=== PATIENT | female | born 1990 | race Caucasian/White ===

== ENCOUNTER 2022-09-23 18:09 | Emergency (ER) | payer OTHER ==
[~2022-09-23] VITALS: Ht 165.1 cm; Wt 70.7 kg
[2022-09-23] MEDS ORDERED: BACL10TA2 PO (18:23)
[2022-09-23] MEDS ORDERED: MELO15TA28 PO (20:43)
[2022-09-23] MEDS ORDERED: KETOROLAC 30 MG/ML 1ML VIAL IM ONE (20:45)
[2022-09-23] MEDS ORDERED: MEDR4PAK PO (20:48)
[2022-09-23 21:05] VITALS: BP 120/63
== END 2022-09-23 21:09 | disposition home or self-care (01) ==
LOC: M ED 18:09
DX: M77.11 Lateral epicondylitis, right elbow (principal); S63.501A Unspecified sprain of right wrist, initial encounter; G62.9 Polyneuropathy, unspecified
CPT/HCPCS: 73110; 96372; 99283; J1885

== ENCOUNTER → 2022-12-05 | Outpatient (REF) ==
[~2022-12-05] MED LIST: BACL10TA2 PO; MEDR4PAK PO; MELO15TA28 PO
== END ==
LOC: M LABSMTC 10:20
PROVIDERS: ATTEND Family Medicine
DX: Z00.00 Encounter for general adult medical examination without abnormal findings (principal)

== ENCOUNTER → 2022-12-06 | Outpatient (REF) | LOC: M EMP 08:56 | PROVIDERS: ATTEND Family Medicine | DX: Z11.52 Encounter for screening for COVID-19 (principal) ==

== ENCOUNTER 2023-03-18 16:50 | Emergency (ER) | payer OTHER, BC ==
[~2023-03-18] VITALS: Ht 165.1 cm; Wt 70.5 kg
[2023-03-18] MEDS ORDERED: ADDE15CA3 PO (17:01)
[2023-03-18] MEDS ORDERED: CYMB60CA4 PO (17:01)
[2023-03-18 20:16] VITALS: BP 119/69
== END 2023-03-18 20:19 | disposition home or self-care (01) ==
LOC: M ED 16:50
DX: S83.203A Other tear of unspecified meniscus, current injury, right knee, initial encounter (principal); X50.0XXA Overexertion from strenuous movement or load, initial encounter; Y92.89 Other specified places as the place of occurrence of the external cause; Y93.01 Activity, walking, marching and hiking; Y99.0 Civilian activity done for income or pay; F90.9 Attention-deficit hyperactivity disorder, unspecified type; Z88.8 Allergy status to other drugs, medicaments and biological substances; Z79.899 Other long term (current) drug therapy

== ENCOUNTER → 2023-03-25 | Outpatient (REF) ==
[~2023-03-25] MED LIST changes: +ADDE15CA3 PO; +CYMB60CA4 PO
== END ==
LOC: M EMP 11:34
PROVIDERS: ATTEND Family Medicine
DX: Z11.52 Encounter for screening for COVID-19 (principal)

== ENCOUNTER 2023-05-28 20:35 | Emergency (ER) | payer BC, OTHER ==
[~2023-05-28] VITALS: Ht 165.1 cm; Wt 74.0 kg
[2023-05-28] MEDS ORDERED: DIPH50CA PO (20:39)
[2023-05-29] MEDS ORDERED: FAMOTIDINE 20 MG TAB PO ONE (00:40)
[2023-05-29] MEDS ORDERED: predniSONE 20 MG TAB PO ONE (00:40)
[2023-05-29] MEDS ORDERED: CETIRIZINE (ZyrTEC) 10 MG TAB PO ONE (00:40)
[2023-05-29] MEDS ORDERED: PRED20TA PO (00:41)
[2023-05-29] MEDS ORDERED: CETI10CH PO (00:41)
[2023-05-29] MEDS ORDERED: PEPC1TAB5 PO (00:41)
[2023-05-29 00:58] VITALS: BP 120/64; TEMP 98.5; O2SAT 98
== END 2023-05-29 01:00 | disposition home or self-care (01) ==
LOC: M ED 20:35
DX: R22.32 Localized swelling, mass and lump, left upper limb (principal); S60.562A Insect bite (nonvenomous) of left hand, initial encounter; W57.XXXA Bitten or stung by nonvenomous insect and other nonvenomous arthropods, initial encounter; Y92.89 Other specified places as the place of occurrence of the external cause; Y93.89 Activity, other specified; Y99.8 Other external cause status; Z79.899 Other long term (current) drug therapy; Z88.8 Allergy status to other drugs, medicaments and biological substances; Z91.040 Latex allergy status; F32.A Depression, unspecified
CPT/HCPCS: 99283; J7512

== ENCOUNTER → 2023-06-29 | Outpatient (CLI) | payer BC ==
[~2023-06-29] MED LIST changes: +CETI10CH PO; +DIPH50CA PO; +PEPC1TAB5 PO; +PRED20TA PO
== END ==
LOC: M WHC 09:31
PROVIDERS: ATTEND Registered Nurse
DX: N64.4 Mastodynia (principal)

== ENCOUNTER → 2023-07-15 | Outpatient (CLI) | payer BC ==
[2023-07-15 13:38] LABS: BASO # 0.1 10^3/uL (0.0-0.2); EOS # 0.1 10^3/uL (0.0-0.5); EOS % 1.6 % (0.0-3.0); HEMOGLOBIN 12.8 g/dl (12.0-15.5); LYMPH # 2.5 10^3/uL (1.5-5.0); LYMPH % 30.8 % (24.0-44.0); MEAN CORPUSCULAR HEMOGLOBIN 27.1 pg (27.0-33.0); MEAN CORPUSCULAR VOLUME 84.6 fl (80.0-96.0); MONO # 0.6 10^3/uL (0.0-0.8); MONO % 7.2 % (2.0-8.0); NEUTROPHILS # 4.8 10^3/uL (1.5-8.5); NEUTROPHILS % 59.2 % (36.0-66.0); PLATELET COUNT, AUTOMATED 264 10^3/uL (150-450); RED BLOOD COUNT 4.73 10^6/uL (4.00-5.40)
[2023-07-15 14:05] LABS: ALBUMIN 3.7 G/DL (3.2-5.2); ALKALINE PHOSPHATASE 65 U/L (46-116); ALT/SGPT 29 U/L (7.0-40); AST/SGOT 23 U/L (<34); BILIRUBIN,TOTAL 0.8 MG/DL (0.3-1.2); BLOOD UREA NITROGEN 13 MG/DL (9-23); CALCIUM LEVEL 8.5 MG/DL (8.5-10.1); CARBON DIOXIDE LEVEL 29 MMOL/L (20-31); CHLORIDE LEVEL 106 MMOL/L (98-107); CHOLESTEROL LEVEL 105 MG/DL (<200); CREATININE FOR GFR 0.67 MG/DL (0.55-1.30); FREE T4 0.78 NG/DL (0.89-1.76); GLOMERULAR FILTRATION RATE > 60.0 (>60); GLUCOSE, FASTING 86 MG/DL (60-100); HDL CHOLESTEROL 43.7 MG/DL (>40); LDL CHOLESTEROL 52.1 MG/DL (<100); NON-HDL-C 61.3 MG/DL; POTASSIUM SERUM 3.9 MMOL/L (3.5-5.1); SODIUM LEVEL 139 MMOL/L (136-145); THYROID STIMULATING HORMONE 2.041 uIU/ML (0.55-4.78); TOTAL PROTEIN 6.8 G/DL (5.7-8.2); TRIGLYCERIDES LEVEL 46 MG/DL (<150)
== END ==
LOC: M LAB 13:05
PROVIDERS: ATTEND Registered Nurse
DX: Z00.00 Encounter for general adult medical examination without abnormal findings (principal); G90.A Postural orthostatic tachycardia syndrome [POTS]; R94.6 Abnormal results of thyroid function studies

== ENCOUNTER → 2023-09-14 | Outpatient (REF) ==
[2023-09-14 13:38] LABS: RSV AMPLIFICATION NEGATIVE (NEGATIVE)
== END ==
LOC: M EMP 08:17
PROVIDERS: ATTEND Family Medicine
DX: Z11.52 Encounter for screening for COVID-19 (principal)

== ENCOUNTER 2023-11-12 10:42 | Emergency (ER) | payer BC ==
[~2023-11-12] VITALS: Ht 165.1 cm; Wt 75.1 kg
[2023-11-12] MEDS ORDERED: MELO7.5T35 (10:59)
[2023-11-12] MEDS ORDERED: RIME75TA (10:59)
[2023-11-12] MEDS ORDERED: LEXA1TAB (11:00)
[2023-11-12] MEDS ORDERED: BUPR-71 (11:00)
[2023-11-12 11:57] LABS: RSV AMPLIFICATION NEGATIVE (NEGATIVE)
[2023-11-12 12:27] LABS: BASO # 0.1 10^3/uL (0.0-0.2); BASO % 0.5 % (0.0-1.0); EOS % 0.2 % (0.0-3.0); HEMATOCRIT 41.7 % (36.0-47.0); HEMOGLOBIN 13.7 g/dl (12.0-15.5); LYMPH # 1.4 10^3/uL (1.5-5.0); LYMPH % 8.8 % (24.0-44.0); MEAN CORPUSCULAR HEMOGLOBIN 27.7 pg (27.0-33.0); MEAN CORPUSCULAR HGB CONC 32.9 g/dl (32.0-36.5); MEAN CORPUSCULAR VOLUME 84.2 fl (80.0-96.0); MONO # 0.9 10^3/uL (0.0-0.8); NEUTROPHILS # 13.2 10^3/uL (1.5-8.5); NEUTROPHILS % 84.2 % (36.0-66.0); PLATELET COUNT, AUTOMATED 287 10^3/uL (150-450); RED BLOOD COUNT 4.95 10^6/uL (4.00-5.40); WHITE BLOOD COUNT 15.6 10^3/uL (4.0-10.0)
[2023-11-12 12:57] LABS: LIPASE 30 U/L (12-53)
[2023-11-12 12:59] LABS: ALKALINE PHOSPHATASE 84 U/L (46-116); ALT/SGPT 17 U/L (7.0-40); AST/SGOT 12 U/L (<34); BILIRUBIN,DIRECT 0.4 MG/DL (<0.4); BILIRUBIN,TOTAL 1.1 MG/DL (0.3-1.2); TOTAL PROTEIN 7.5 G/DL (5.7-8.2)
[2023-11-12 13:03] LABS: HCG, SERUM QUALITATIVE NEGATIVE (NEGATIVE)
[2023-11-12] MEDS ORDERED: KETOROLAC 30 MG/ML 1ML VIAL IV ONE (13:20)
[2023-11-12] MEDS ORDERED: ISOVUE-370 76% 100ML VIAL As Ordered ONE (13:57)
[2023-11-12] MEDS ORDERED: AMOX875T2 PO (16:53)
[2023-11-12 17:20] VITALS: BP 114/61; TEMP 98.9; O2SAT 98
== END 2023-11-12 17:23 | disposition home or self-care (01) ==
LOC: M ED 10:42
DX: R10.9 Unspecified abdominal pain (principal); Z87.891 Personal history of nicotine dependence; Z91.040 Latex allergy status; Z88.8 Allergy status to other drugs, medicaments and biological substances; Z79.899 Other long term (current) drug therapy
CPT/HCPCS: 71046; 74177; 76830; 76856; 80047; 80076; 81001; 83690; 84703; 85025; 87631; 93976; 96374; 99284; J1885; Q9967

== ENCOUNTER → 2023-12-05 | Outpatient (CLI) | payer BC ==
[~2023-12-05] MED LIST changes: +AMOX875T2 PO; +BUPR-71; +GASTROGRAFIN SOLUTION 30ML ONE; +ISOVUE-370 76% 100ML VIAL ONE; +LEXA1TAB; +MELO7.5T35; +RIME75TA
== END ==
LOC: M PLAIMG 08:53
PROVIDERS: ATTEND Surgery
DX: R10.31 Right lower quadrant pain (principal)
CPT/HCPCS: 74177; Q9963; Q9967

== ENCOUNTER 2024-01-18 10:08 | Day surgery (SDC) | payer BC ==
[~2024-01-18] VITALS: Ht 165.1 cm; Wt 70.9 kg
[~2024-01-18 10:08] MED LIST changes: +CVSTAB PO; -GASTROGRAFIN SOLUTION 30ML ONE; -ISOVUE-370 76% 100ML VIAL ONE; +VENTAER INH
[2024-01-18] MEDS: NS 1,000 ML IV ONE (10:52)
[2024-01-18] MEDS ORDERED: propofoL 200 MG/20 ML VIAL As Ordered ONE (11:00)
[2024-01-18] MEDS ORDERED: LIDOCAINE 2% 100MG/5ML SDV (FOR ANES.) As Ordered ONE (11:00)
[2024-01-18 11:43] VITALS: TEMP 97.8
[2024-01-18 12:03] VITALS: BP 98/53; O2SAT 99
== END 2024-01-18 12:10 | disposition home or self-care (01) ==
LOC: M OPP 10:08
PROVIDERS: ATTEND Surgery
DX: R10.31 Right lower quadrant pain (principal); K64.0 First degree hemorrhoids; K63.89 Other specified diseases of intestine; Z87.891 Personal history of nicotine dependence; Z79.51 Long term (current) use of inhaled steroids; Z79.899 Other long term (current) drug therapy; Z88.8 Allergy status to other drugs, medicaments and biological substances; Z91.040 Latex allergy status

== ENCOUNTER → 2024-02-01 | Outpatient (REF) | LOC: M EMP 13:46 | PROVIDERS: ATTEND Family Medicine | DX: Z11.52 Encounter for screening for COVID-19 (principal) ==

== ENCOUNTER → 2024-02-21 | Outpatient (REF) | LOC: M EMP 10:04 | PROVIDERS: ATTEND Family Medicine | DX: Z11.52 Encounter for screening for COVID-19 (principal) ==

== ENCOUNTER → 2024-02-21 | Outpatient (REF) | LOC: M EMP 10:30 | PROVIDERS: ATTEND Family Medicine | DX: Z11.52 Encounter for screening for COVID-19 (principal) ==

== ENCOUNTER 2024-03-08 05:57 | Day surgery (SDC) | payer BC ==
[~2024-03-08] VITALS: Ht 165.1 cm; Wt 70.3 kg
[2024-03-08] MEDS: LR 1,000 ML IV SCH (06:49)
[2024-03-08] MEDS ORDERED: ROCURONIUM BROMIDE 50MG/5ML VIAL As Ordered ONE (07:13)
[2024-03-08] MEDS ORDERED: ONDANSETRON 4MG 2ML VIAL As Ordered ONE (07:13)
[2024-03-08] MEDS ORDERED: LIDOCAINE 2% 100MG/5ML SDV (FOR ANES.) As Ordered ONE (07:13)
[2024-03-08] MEDS ORDERED: propofoL 200 MG/20 ML VIAL As Ordered ONE (07:13)
[2024-03-08] MEDS ORDERED: fentaNYL 100 MCG/2 ML INJECTION As Ordered ONE (07:14)
[2024-03-08] MEDS ORDERED: MIDAZOLAM INJ 2MG/2ML VIAL As Ordered ONE (07:14)
[2024-03-08] MEDS: ceFAZolin SOD 2 GM in IV 1 EA IV ONE (07:33)
[2024-03-08] MEDS: metroNIDAZOLE 500 MG in IV 1 EA IV ONE (07:41)
[2024-03-08] MEDS ORDERED: dexmedeTOMIDine (4MCG/ML)200MCG/50ML BTL (PRECEDEX) As Ordered ONE (07:50)
[2024-03-08] MEDS ORDERED: ACETAMINOPHEN 1000MG 100ML IV BAG As Ordered ONE (08:06)
[2024-03-08] MEDS ORDERED: HYDROMORPHONE HCL 0.5 MG/ 0.5 ML SYRINGE IV PRN (08:55)
[2024-03-08] MEDS ORDERED: LR 1,000 ML IV SCH (08:55)
[2024-03-08] MEDS: ONDANSETRON 4MG 2ML VIAL IV PRN (09:11)
[2024-03-08] MEDS: fentaNYL 100 MCG/2 ML INJECTION IV PRN (09:27)
[2024-03-08] MEDS: oxyCODONE 5MG TAB PO PRN (09:34)
[2024-03-08] MEDS: PROMETHAZINE 25MG/ML 1ML VIAL IV PRN (10:04)
[2024-03-08] MEDS ORDERED: NORCO, ANEXSIA 5/325MG TABLET (HYDROcodone/ACETAMINOPHEN) PO PRN (10:30)
[2024-03-08 10:54] VITALS: BP 99/54; TEMP 97.7; O2SAT 100
[2024-03-08] MEDS: SCOPOLAMINE 1MG TRANSDERMAL PATCH TOP ONE (11:15)
== END 2024-03-08 11:42 | disposition home or self-care (01) ==
LOC: M SDC 05:57
PROVIDERS: ATTEND Surgery
DX: K37 Unspecified appendicitis (principal); Z91.040 Latex allergy status; Z88.8 Allergy status to other drugs, medicaments and biological substances; Z87.891 Personal history of nicotine dependence; Z79.899 Other long term (current) drug therapy
CPT/HCPCS: 44970; 81025; 88304; J0131; J0665; J0690; J1100; J1836; J2250; J2405; J2550; J3010; S2900

== ENCOUNTER → 2024-04-04 | Outpatient (CLI) | payer BC ==
[2024-04-04 17:12] LABS: BASO # 0.1 10^3/uL (0.0-0.2); BASO % 1.4 % (0.0-1.0); EOS # 0.1 10^3/uL (0.0-0.5); EOS % 1.1 % (0.0-3.0); HEMATOCRIT 38.7 % (36.0-47.0); HEMOGLOBIN 12.6 g/dl (12.0-15.5); LYMPH # 2.4 10^3/uL (1.5-5.0); LYMPH % 35.9 % (24.0-44.0); MEAN CORPUSCULAR HEMOGLOBIN 27.3 pg (27.0-33.0); MEAN CORPUSCULAR HGB CONC 32.6 g/dl (32.0-36.5); MEAN CORPUSCULAR VOLUME 83.8 fl (80.0-96.0); MONO # 0.6 10^3/uL (0.0-0.8); MONO % 8.8 % (2.0-8.0); NEUTROPHILS # 3.5 10^3/uL (1.5-8.5); NEUTROPHILS % 52.6 % (36.0-66.0); PLATELET COUNT, AUTOMATED 325 10^3/uL (150-450); RED BLOOD COUNT 4.62 10^6/uL (4.00-5.40); WHITE BLOOD COUNT 6.6 10^3/uL (4.0-10.0)
[2024-04-04 17:24] LABS: HEMOGLOBIN A1c 5.1 % (4.0-6.0)
[2024-04-04 17:43] LABS: THYROID STIMULATING HORMONE 1.139 uIU/ML (0.55-4.78)
[2024-04-04 17:44] LABS: ALKALINE PHOSPHATASE 85 U/L (46-116); ALT/SGPT 88 U/L (7.0-40); AST/SGOT 52 U/L (<34); BILIRUBIN,TOTAL 0.5 MG/DL (0.3-1.2); BLOOD UREA NITROGEN 9 MG/DL (9-23); CALCIUM LEVEL 9.1 MG/DL (8.5-10.1); CARBON DIOXIDE LEVEL 29 MMOL/L (20-31); CHLORIDE LEVEL 104 MMOL/L (98-107); CREATININE FOR GFR 0.75 MG/DL (0.55-1.30); FREE T4 1.33 NG/DL (0.89-1.76); GLOMERULAR FILTRATION RATE > 60.0 (>60); GLUCOSE, FASTING 93 MG/DL (60-100); POTASSIUM SERUM 4.4 MMOL/L (3.5-5.1); SODIUM LEVEL 139 MMOL/L (136-145); TOTAL PROTEIN 7.4 G/DL (5.7-8.2)
== END ==
LOC: M LAB 16:46
PROVIDERS: ATTEND Nurse Practitioner Psychiatric/Mental Health
DX: Z79.899 Other long term (current) drug therapy (principal)

== ENCOUNTER → 2024-05-18 | Outpatient (REF) | LOC: M EMP 13:01 | PROVIDERS: ATTEND Family Medicine | DX: Z11.52 Encounter for screening for COVID-19 (principal) ==

== ENCOUNTER → 2024-10-30 | Outpatient (REF) | LOC: M EMP 09:07 | PROVIDERS: ATTEND Family Medicine | DX: Z11.52 Encounter for screening for COVID-19 (principal) ==

== ENCOUNTER → 2024-11-20 | Outpatient (REF) | payer BC | LOC: M LAB REF 15:59 | PROVIDERS: ATTEND Physician Assistant | DX: B34.9 Viral infection, unspecified (principal) ==

== ENCOUNTER → 2025-01-04 | Outpatient (CLI) | payer BC ==
[2025-01-04 08:38] LABS: BASO # 0.1 10^3/uL (0.0-0.2); EOS # 0.3 10^3/uL (0.0-0.5); EOS % 4.9 % (0.0-3.0); HEMATOCRIT 40.1 % (36.0-47.0); HEMOGLOBIN 12.7 g/dl (12.0-15.5); LYMPH # 1.2 10^3/uL (1.5-5.0); LYMPH % 18.6 % (24.0-44.0); MEAN CORPUSCULAR HEMOGLOBIN 26.6 pg (27.0-33.0); MEAN CORPUSCULAR HGB CONC 31.7 g/dl (32.0-36.5); MEAN CORPUSCULAR VOLUME 84.1 fl (80.0-96.0); MONO # 0.4 10^3/uL (0.0-0.8); MONO % 6.9 % (2.0-8.0); NEUTROPHILS # 4.3 10^3/uL (1.5-8.5); NEUTROPHILS % 67.3 % (36.0-66.0); PLATELET COUNT, AUTOMATED 328 10^3/uL (150-450); RED BLOOD COUNT 4.77 10^6/uL (4.00-5.40); WHITE BLOOD COUNT 6.4 10^3/uL (4.0-10.0)
[2025-01-04 09:11] LABS: IRON (FE) 66 UG/DL (50-170)
[2025-01-04 09:12] LABS: ALKALINE PHOSPHATASE 73 U/L (35-104); ALT/SGPT 27 U/L (7.0-40); AST/SGOT 18 U/L (<34); BILIRUBIN,TOTAL 0.6 MG/DL (0.3-1.2); BLOOD UREA NITROGEN 16 MG/DL (9-23); CALCIUM LEVEL 9.1 MG/DL (8.5-10.1); CARBON DIOXIDE LEVEL 29 MMOL/L (20-31); CHLORIDE LEVEL 105 MMOL/L (98-107); CHOLESTEROL LEVEL 109 MG/DL (<200); CHOLESTEROL RISK RATIO 2.57 (<5); FERRITIN 28.3 NG/ML (7.3-270.7); FOLATE 9.5 NG/ML (>5.4); FREE T4 1.18 NG/DL (0.89-1.76); GLOMERULAR FILTRATION RATE > 60.0 (>60); GLUCOSE, FASTING 90 MG/DL (60-100); HDL CHOLESTEROL 42.3 MG/DL (>40); LDL CHOLESTEROL 60.1 MG/DL (<100); NON-HDL-C 66.7 MG/DL; PERCENT SATURATION 20.2 % (13.2-45.0); POTASSIUM SERUM 4.9 MMOL/L (3.5-5.1); SODIUM LEVEL 142 MMOL/L (136-145); THYROID PEROXIDASE ANTIBODY < 28.0 U/ML (<60.0); THYROID STIMULATING HORMONE 0.646 uIU/ML (0.55-4.78); TOTAL IRON BINDING CAPACITY 326 UG/DL (250-425); TOTAL PROTEIN 7.6 G/DL (5.7-8.2); TRIGLYCERIDES LEVEL 33 MG/DL (<150)
[2025-01-04 09:13] LABS: VITAMIN B12 LEVEL 782 PG/ML (211-911)
== END ==
LOC: M LAB 07:43
PROVIDERS: ATTEND Registered Nurse
DX: G90.A Postural orthostatic tachycardia syndrome [POTS] (principal)

== ENCOUNTER 2025-01-13 04:42 | Emergency (ER) | payer BC ==
[~2025-01-13] VITALS: Ht 165.1 cm; Wt 62.8 kg
[2025-01-13 05:27] LABS: KETONE, URINE AUTO RFX NEGATIVE (NEGATIVE); MUCUS, URINE RFX LARGE (NEGATIVE); NITRITE, URINE AUTO RFX NEGATIVE (NEGATIVE); RBC, URINE AUTO RFX 4 /HPF (0-3); SQUAM EPITHELIAL CELL UR AURFX 4 /HPF (0-6); WBC, URINE AUTO RFX 3 /HPF (0-3)
[2025-01-13 05:28] LABS: LEUKOCYTE ESTERASE UR AUTO RFX 3+ (NEGATIVE)
[2025-01-13 05:32] LABS: BASO # 0.1 10^3/uL (0.0-0.2); BASO % 1.3 % (0.0-1.0); EOS # 0.3 10^3/uL (0.0-0.5); EOS % 4.1 % (0.0-3.0); HEMATOCRIT 41.9 % (36.0-47.0); HEMOGLOBIN 13.5 g/dl (12.0-15.5); LYMPH # 2.6 10^3/uL (1.5-5.0); LYMPH % 31.1 % (24.0-44.0); MEAN CORPUSCULAR HEMOGLOBIN 27.3 pg (27.0-33.0); MEAN CORPUSCULAR HGB CONC 32.2 g/dl (32.0-36.5); MEAN CORPUSCULAR VOLUME 84.6 fl (80.0-96.0); MONO # 0.6 10^3/uL (0.0-0.8); MONO % 7.2 % (2.0-8.0); NEUTROPHILS # 4.6 10^3/uL (1.5-8.5); NEUTROPHILS % 55.9 % (36.0-66.0); PLATELET COUNT, AUTOMATED 294 10^3/uL (150-450); RED BLOOD COUNT 4.95 10^6/uL (4.00-5.40); WHITE BLOOD COUNT 8.2 10^3/uL (4.0-10.0)
[2025-01-13 05:51] LABS: LIPASE 28 U/L (12-53)
[2025-01-13 05:53] LABS: ALBUMIN 4.3 G/DL (3.2-5.2); ALKALINE PHOSPHATASE 81 U/L (35-104); ALT/SGPT 21 U/L (7.0-40); AST/SGOT 13 U/L (<34); BILIRUBIN,DIRECT 0.3 MG/DL (<0.4); BILIRUBIN,TOTAL 0.8 MG/DL (0.3-1.2); BLOOD UREA NITROGEN 9 MG/DL (9-23); CALCIUM LEVEL 8.8 MG/DL (8.5-10.1); CARBON DIOXIDE LEVEL 25 MMOL/L (20-31); CHLORIDE LEVEL 104 MMOL/L (98-107); CREATININE FOR GFR 0.63 MG/DL (0.55-1.30); GLOMERULAR FILTRATION RATE > 60.0 (>60); GLUCOSE, FASTING 81 MG/DL (60-100); POTASSIUM SERUM 3.6 MMOL/L (3.5-5.1); SODIUM LEVEL 139 MMOL/L (136-145)
[2025-01-13 05:59] LABS: HCG, SERUM QUALITATIVE NEGATIVE (NEGATIVE)
[2025-01-13] MEDS: IBUPROFEN 600MG TAB PO ONE (08:11)
[2025-01-13] MEDS ORDERED: SULF1TAB23 PO (09:05)
[2025-01-13 09:23] VITALS: BP 93/62; TEMP 97.8; O2SAT 99
== END 2025-01-13 09:25 | disposition home or self-care (01) ==
LOC: M ED 04:42
DX: N39.0 Urinary tract infection, site not specified (principal); J45.909 Unspecified asthma, uncomplicated; G90.A Postural orthostatic tachycardia syndrome [POTS]; K58.9 Irritable bowel syndrome, unspecified; Z88.8 Allergy status to other drugs, medicaments and biological substances; Z91.040 Latex allergy status; Z79.51 Long term (current) use of inhaled steroids; Z79.810 Long term (current) use of selective estrogen receptor modulators (SERMs); Z79.899 Other long term (current) drug therapy

== ENCOUNTER → 2025-06-20 | Outpatient (REF) ==
[~2025-06-20] MED LIST changes: +SULF1TAB23 PO
== END ==
LOC: M EMP 09:23
PROVIDERS: ATTEND Family Medicine
DX: Z11.52 Encounter for screening for COVID-19 (principal)

== ENCOUNTER → 2025-08-22 | Outpatient (REF) | payer BC ==
[~2025-08-22] MED LIST changes: -DIPH50CA PO; +DIPH50CA31 PO
== END ==
LOC: M LAB REF 21:25
PROVIDERS: ATTEND Physician Assistant
DX: J02.9 Acute pharyngitis, unspecified (principal)

== ENCOUNTER → 2025-09-23 | Outpatient (CLI) | payer BC ==
[~2025-09-23] MED LIST changes: +SULF-7 PO; -SULF1TAB23 PO
== END ==
LOC: M RAD 10:18
PROVIDERS: ATTEND Physician Assistant Medical
DX: R05.9 Cough, unspecified (principal)